=== PATIENT | male | born 2005 | race Two or more races ===

== ENCOUNTER 2023-11-30 20:28 | Emergency (ER) | payer MEDICAID ==
[~2023-11-30] VITALS: Ht 175.3 cm; Wt 89.3 kg
[2023-11-30 21:07] VITALS: BP 114/72; PULSE 58; RESP 18; O2SAT 97
== END 2023-12-01 03:43 | disposition left against medical advice (07) ==
LOC: ER 20:28
DX: M79.662 Pain in left lower leg (principal); M25.561 Pain in right knee; Z53.21 Procedure and treatment not carried out due to patient leaving prior to being seen by health care provider

== ENCOUNTER 2023-12-01 01:18 | Emergency (ER) | payer MEDICAID ==
[~2023-12-01] VITALS: Ht 175.3 cm; Wt 89.3 kg
[2023-12-01 01:40] VITALS: BP 128/73; PULSE 52; RESP 18; TEMP 98.8; O2SAT 100
== END 2023-12-01 04:19 | disposition home or self-care (01) ==
LOC: ER 01:18
DX: S80.01XA Contusion of right knee, initial encounter (principal); S80.12XA Contusion of left lower leg, initial encounter; W01.0XXA Fall on same level from slipping, tripping and stumbling without subsequent striking against object, initial encounter; Y93.89 Activity, other specified; Y92.89 Other specified places as the place of occurrence of the external cause; Y99.8 Other external cause status